=== PATIENT | male | born 1935 | race Caucasian/White ===

== ENCOUNTER 2018-03-11 10:57 | Inpatient (IN) | payer MEDICARE, OTHER ==
[2018-03-11 11:59] LABS: BASO # 0.1 10^3/uL (0.0-0.2); BASO % 0.4 % (0.0-1.0); EOS # 0.7 10^3/uL (0.0-0.50); EOS % 4.8 % (0.0-3.0); HEMATOCRIT 41.2 % (42.0-52.0); HEMOGLOBIN 13.5 g/dl (13.5-17.5); IMMATURE GRANULOCYTE % 1.1 % (0-3.0); LYMPH # 2.4 10^3/uL (1.5-4.5); LYMPH % 17.2 % (24.0-44.0); MEAN CORPUSCULAR HEMOGLOBIN 32.1 pg (27.0-33.0); MEAN CORPUSCULAR HGB CONC 32.8 g/dl (32.0-36.5); MEAN CORPUSCULAR VOLUME 97.9 fl (80.0-96.0); MONO # 0.8 10^3/uL (0.0-0.8); MONO % 5.9 % (0.0-5.0); NEUTROPHILS # 9.9 10^3/uL (1.8-7.7); NEUTROPHILS % 70.6 % (36.0-66.0); PLATELET COUNT, AUTOMATED 335 10^3/uL (150-450); RED BLOOD COUNT 4.21 10^6/uL (4.30-6.10); RED CELL DISTRIBUTION WIDTH 13.9 % (11.5-14.5)
[2018-03-11 12:05] LABS: ABG BASE EXCESS -1.9 (-2.0-2.0); ABG HCO3 21.6 MEQ/L (22.0-26.0); ABG O2 SATURATION 94.7 % (95.0-99.0); ABG PARTIAL PRESSURE CO2 33.5 mmHg (35.0-45.0); ABG STANDARD HCO3 22.8 MEQ/L (22.0-26.0); ABG TOTAL CO2 22.7 MEQ/L (23.0-31.0); ABG pH (ARTERIAL) 7.428 UNITS (7.350-7.450)
[2018-03-11 12:16] LABS: ANION GAP 11 MEQ/L (8-16); BLOOD UREA NITROGEN 13 MG/DL (7-18); CALCIUM LEVEL 9.3 MG/DL (8.8-10.2); CARBON DIOXIDE LEVEL 26 MEQ/L (21-32); CHLORIDE LEVEL 101 MEQ/L (98-107); CREATININE FOR GFR 1.49 MG/DL (0.70-1.30); GLOMERULAR FILTRATION RATE 47.9 (>35); GLUCOSE, FASTING 141 MG/DL (70-100); POTASSIUM SERUM 3.7 MEQ/L (3.5-5.1); SODIUM LEVEL 138 MEQ/L (136-145)
[2018-03-11] MEDS: FUROSEMIDE 40 MG/4 ML VIAL (J1940) IV ×2 (12:40→17:29)
[2018-03-11] MEDS: IPRATROPIUM 0.5MG/ALBUTEROL 2.5MG INH SOL UD 3ML (DUONEB)(J7620) NEB ×4 (12:48→18:26)
[2018-03-11 12:52] LABS: CPK CREATINE PHOSPHOKINASE 45 U/L (39-308); MB/CK RELATIVE INDEX 6.44 (< OR =4); NT-PRO BNP 571 PG/ML (<450); TROPONIN I < 0.02 NG/ML (< 0.10)
[2018-03-11 15:17] LABS: INR 1.25; PROTHROMBIN TIME 15.9 SECONDS (12.1-14.4)
[2018-03-11 16:11] LABS: APPEARANCE, URINE CLEAR (CLEAR); BACTERIA, URINE AUTO NEGATIVE (NEGATIVE); BILIRUBIN, URINE AUTO NEGATIVE (NEGATIVE); BLOOD, URINE BLOOD 2+ (NEGATIVE); COLOR, URINE STRAW (YELLOW); GLUCOSE, URINE (UA) AUTO NEGATIVE (NEGATIVE); KETONE, URINE AUTO TRACE mg/dL (NEGATIVE); LEUKOCYTE ESTERASE, URINE AUTO NEGATIVE (NEGATIVE); MUCUS, URINE SMALL (NEGATIVE); NITRITE, URINE AUTO NEGATIVE (NEGATIVE); PROTEIN, URINE AUTO NEGATIVE (NEGATIVE); RBC, URINE AUTO 2 /HPF (0-3); SPECIFIC GRAVITY URINE AUTO 1.005 (1.002-1.035); SQUAMOUS EPITHELIAL CELL UR AU 0 /HPF (0-6); UROBILINOGEN, URINE AUTO 0.2 mg/dL (0.0-2.0); WBC, URINE AUTO 1 /HPF (0-3)
[2018-03-11 16:21] LABS: OSMOLALITY URINE 278 MOSM/KG (500-800)
[2018-03-11 16:28] LABS: CHLORIDE,RANDOM URINE 106 MEQ/L; POTASSIUM RANDOM URINE 24.8 MEQ/L; SODIUM,RANDOM URINE 77 MEQ/L; TOTAL PROTEIN,RANDOM URINE 13.8 MG/DL (0.0-12.0)
[2018-03-11] MEDS ORDERED: ACETAMINOPHEN TAB 650MG DOSE (2X325MG) PO (16:30)
[2018-03-11] MEDS ORDERED: ONDANSETRON 4MG/2ML VIAL (J2405) IV (16:30)
[2018-03-11] MEDS ORDERED: IPRATROPIUM 0.5MG/ALBUTEROL 2.5MG INH SOL UD 3ML (DUONEB)(J7620) NEB (16:30)
[2018-03-11 16:33] LABS: ALBUMIN 3.1 GM/DL (3.2-5.2); ALBUMIN/GLOBULIN RATIO 0.94 (1.00-1.93); ALKALINE PHOSPHATASE 125 U/L (45-117); ALT/SGPT 19 U/L (12-78); AST/SGOT 11 U/L (7-37); BILIRUBIN,DIRECT 0.3 MG/DL (0.0-0.2); BILIRUBIN,TOTAL 0.7 MG/DL (0.2-1.0); C REACTIVE PROTEIN QUANTITATIV 8.69 MG/DL (0.00-0.30); CPK CREATINE PHOSPHOKINASE 47 U/L (39-308); MB/CK RELATIVE INDEX 7.45 (< OR =4); TOTAL PROTEIN 6.4 GM/DL (6.4-8.2); TROPONIN I < 0.02 NG/ML (< 0.10)
[2018-03-11 16:37] LABS: LACTIC ACID SEPSIS PROTOCOL 2.3 MMOL/L (0.4-2.0)
[2018-03-11 17:29] LABS: FREE THYROXINE INDEX 2.5 % (1.4-3.8); T UPTAKE 36 % (33-40)
[2018-03-11] MEDS: methylPREDNISolone INJ 125 MG/2 ML VIAL (J2930) IV (17:32)
[2018-03-11] MEDS: MOXIFLOXACIN HCL 400 MG in APPROPRIATE DILUENT 1 EA IV (17:39)
[2018-03-11] MEDS ORDERED: SLF 3 ML SYR IV (18:45)
[2018-03-11] MEDS: ADVAIR HFA 115/21MCG INHALER INH (20:17)
[2018-03-11] MEDS: ALLOPURINOL 100 MG TAB PO (20:43)
[2018-03-11] MEDS: SIMVASTATIN 20 MG TAB PO (20:43)
[2018-03-11] MEDS: APIXABAN 2.5 MG TAB (ELIQUIS) PO (20:43)
[2018-03-11] MEDS: SENOKOT S TAB PO (20:43)
[2018-03-11] MEDS: FINASTERIDE 5 MG TAB PO (20:43)
[2018-03-11] MEDS: SLF 3 ML SYR IV (20:44)
[2018-03-11 20:51] LABS: CPK CREATINE PHOSPHOKINASE 62 U/L (39-308); MB/CK RELATIVE INDEX 6.77 (< OR =4); TROPONIN I < 0.02 NG/ML (< 0.10)
[2018-03-11] MEDS ORDERED: NS 1,000 ML IV ×2 (21:00)
[2018-03-12] MEDS: FUROSEMIDE 40 MG/4 ML VIAL (J1940) IV ×4 (00:37→17:38)
[2018-03-12] MEDS: methylPREDNISolone INJ 125 MG/2 ML VIAL (J2930) IV ×3 (00:37→17:37)
[2018-03-12] MEDS: IPRATROPIUM 0.5MG/ALBUTEROL 2.5MG INH SOL UD 3ML (DUONEB)(J7620) NEB ×4 (00:55→20:00)
[2018-03-12 01:28] LABS: KETONE, URINE AUTO RFX NEGATIVE (NEGATIVE); LEUKOCYTE ESTERASE UR AUTO RFX NEGATIVE (NEGATIVE); NITRITE, URINE AUTO RFX NEGATIVE (NEGATIVE); RBC, URINE AUTO RFX 3 /HPF (0-3); SPECIFIC GRAVITY UR AUTO RFX 1.004 (1.002-1.035); SQUAM EPITHELIAL CELL UR AURFX 0 /HPF (0-6); WBC, URINE AUTO RFX 1 /HPF (0-3)
[2018-03-12] MEDS: SLF 3 ML SYR IV ×3 (05:19→20:27)
[2018-03-12 05:54] LABS: HEMATOCRIT 38.3 % (42.0-52.0); HEMOGLOBIN 13.1 g/dl (13.5-17.5); MEAN CORPUSCULAR HGB CONC 34.2 g/dl (32.0-36.5); MEAN CORPUSCULAR VOLUME 93.4 fl (80.0-96.0); PLATELET COUNT, AUTOMATED 329 10^3/uL (150-450); RED CELL DISTRIBUTION WIDTH 13.7 % (11.5-14.5); WHITE BLOOD COUNT 11.9 10^3/uL (4.0-10.0)
[2018-03-12 06:23] LABS: ALBUMIN 3.1 GM/DL (3.2-5.2); ALBUMIN/GLOBULIN RATIO 0.74 (1.00-1.93); ALKALINE PHOSPHATASE 112 U/L (45-117); ALT/SGPT 20 U/L (12-78); ANION GAP 13 MEQ/L (8-16); AST/SGOT 17 U/L (7-37); BILIRUBIN,TOTAL 0.5 MG/DL (0.2-1.0); BLOOD UREA NITROGEN 19 MG/DL (7-18); C REACTIVE PROTEIN QUANTITATIV 7.96 MG/DL (0.00-0.30); CALCIUM LEVEL 9.3 MG/DL (8.8-10.2); CARBON DIOXIDE LEVEL 24 MEQ/L (21-32); CHLORIDE LEVEL 99 MEQ/L (98-107); CREATININE FOR GFR 1.76 MG/DL (0.70-1.30); GLOMERULAR FILTRATION RATE 39.6 (>35); GLUCOSE, FASTING 161 MG/DL (70-100); MAGNESIUM LEVEL 2.1 MG/DL (1.8-2.4); POTASSIUM SERUM 3.6 MEQ/L (3.5-5.1); SODIUM LEVEL 136 MEQ/L (136-145); TOTAL PROTEIN 7.3 GM/DL (6.4-8.2)
[2018-03-12] MEDS: ADVAIR HFA 115/21MCG INHALER INH ×2 (07:55→20:15)
[2018-03-12] MEDS: APIXABAN 2.5 MG TAB (ELIQUIS) PO ×3 (09:00→20:25)
[2018-03-12] MEDS: SENOKOT S TAB PO ×2 (09:00→20:26)
[2018-03-12] MEDS: MOXIFLOXACIN HCL 400 MG in APPROPRIATE DILUENT 1 EA IV (17:37)
[2018-03-12] MEDS: INFLUENZA VIRUS VACCINE HIGH DOSE 0.5 ML SYRINGE (90662) IM (17:39)
[2018-03-12] MEDS: ALLOPURINOL 100 MG TAB PO (20:25)
[2018-03-12] MEDS: SIMVASTATIN 20 MG TAB PO (20:25)
[2018-03-12] MEDS: FINASTERIDE 5 MG TAB PO (20:26)
[2018-03-13] MEDS: FUROSEMIDE 40 MG/4 ML VIAL (J1940) IV ×4 (00:01→18:02)
[2018-03-13] MEDS: methylPREDNISolone INJ 125 MG/2 ML VIAL (J2930) IV ×2 (00:02→08:01)
[2018-03-13] MEDS: IPRATROPIUM 0.5MG/ALBUTEROL 2.5MG INH SOL UD 3ML (DUONEB)(J7620) NEB ×4 (00:57→20:00)
[2018-03-13] MEDS: SLF 3 ML SYR IV ×3 (05:06→21:10)
[2018-03-13 05:47] LABS: HEMATOCRIT 36.7 % (42.0-52.0); HEMOGLOBIN 12.2 g/dl (13.5-17.5); MEAN CORPUSCULAR HEMOGLOBIN 31.4 pg (27.0-33.0); MEAN CORPUSCULAR HGB CONC 33.2 g/dl (32.0-36.5); MEAN CORPUSCULAR VOLUME 94.6 fl (80.0-96.0); PLATELET COUNT, AUTOMATED 274 10^3/uL (150-450); RED BLOOD COUNT 3.88 10^6/uL (4.30-6.10); RED CELL DISTRIBUTION WIDTH 13.9 % (11.5-14.5); WHITE BLOOD COUNT 19.1 10^3/uL (4.0-10.0)
[2018-03-13 06:38] LABS: ALBUMIN 2.5 GM/DL (3.2-5.2); ALBUMIN/GLOBULIN RATIO 0.64 (1.00-1.93); ALKALINE PHOSPHATASE 88 U/L (45-117); ALT/SGPT 21 U/L (12-78); ANION GAP 11 MEQ/L (8-16); AST/SGOT 35 U/L (7-37); BILIRUBIN,TOTAL 0.3 MG/DL (0.2-1.0); BLOOD UREA NITROGEN 27 MG/DL (7-18); CALCIUM LEVEL 8.4 MG/DL (8.8-10.2); CARBON DIOXIDE LEVEL 21 MEQ/L (21-32); CHLORIDE LEVEL 103 MEQ/L (98-107); CREATININE FOR GFR 1.93 MG/DL (0.70-1.30); GLOMERULAR FILTRATION RATE 35.6 (>35); GLUCOSE, FASTING 163 MG/DL (70-100); MAGNESIUM LEVEL 2.1 MG/DL (1.8-2.4); POTASSIUM SERUM 3.6 MEQ/L (3.5-5.1); SODIUM LEVEL 135 MEQ/L (136-145); TOTAL PROTEIN 6.4 GM/DL (6.4-8.2)
[2018-03-13] MEDS: ADVAIR HFA 115/21MCG INHALER INH ×2 (07:10→22:07)
[2018-03-13] MEDS: SENOKOT S TAB PO ×2 (08:01→21:09)
[2018-03-13] MEDS: APIXABAN 2.5 MG TAB (ELIQUIS) PO ×2 (08:01→21:09)
[2018-03-13] MEDS ORDERED: dexameTHASONE 4 MG/ML 1ML VIAL (J1100) As Ordered (14:21)
[2018-03-13] MEDS ORDERED: ONDANSETRON 4MG/2ML VIAL (J2405) As Ordered (14:21)
[2018-03-13] MEDS ORDERED: PROPOFOL 200 MG/20 ML VIAL As Ordered ×2 (14:21→15:28)
[2018-03-13] MEDS ORDERED: LIDOCAINE 2% INJ 100 MG/5 ML SDV (FOR ANES.) As Ordered (14:21)
[2018-03-13] MEDS ORDERED: fentaNYL 100 MCG/2 ML INJECTION (J3010) As Ordered (14:22)
[2018-03-13] MEDS ORDERED: MIDAZOLAM INJ 2 MG/2 ML VIAL (J2250) As Ordered (14:22)
[2018-03-13] MEDS: LIDOCAINE 2% 5ML JELLY UROJET As Ordered (15:30)
[2018-03-13] MEDS: CONRAY-60 60% 50ML VIAL (Q9961) As Ordered (15:30)
[2018-03-13] MEDS: LR 1,000 ML IV (15:59)
[2018-03-13] MEDS: MOXIFLOXACIN HCL 400 MG in APPROPRIATE DILUENT 1 EA IV (16:25)
[2018-03-13] MEDS: FINASTERIDE 5 MG TAB PO (21:08)
[2018-03-13] MEDS: SIMVASTATIN 20 MG TAB PO (21:08)
[2018-03-13] MEDS: ALLOPURINOL 100 MG TAB PO (21:09)
[2018-03-13] MEDS: predniSONE 20 MG TAB PO (21:09)
[2018-03-14] MEDS: FUROSEMIDE 40 MG/4 ML VIAL (J1940) IV ×3 (00:03→11:50)
[2018-03-14] MEDS: IPRATROPIUM 0.5MG/ALBUTEROL 2.5MG INH SOL UD 3ML (DUONEB)(J7620) NEB ×4 (01:29→20:00)
[2018-03-14 05:09] LABS: HEMATOCRIT 37.8 % (42.0-52.0); HEMOGLOBIN 12.5 g/dl (13.5-17.5); MEAN CORPUSCULAR HEMOGLOBIN 31.6 pg (27.0-33.0); MEAN CORPUSCULAR HGB CONC 33.1 g/dl (32.0-36.5); MEAN CORPUSCULAR VOLUME 95.5 fl (80.0-96.0); PLATELET COUNT, AUTOMATED 304 10^3/uL (150-450); RED BLOOD COUNT 3.96 10^6/uL (4.30-6.10); RED CELL DISTRIBUTION WIDTH 13.7 % (11.5-14.5); WHITE BLOOD COUNT 18.2 10^3/uL (4.0-10.0)
[2018-03-14] MEDS: SLF 3 ML SYR IV ×3 (05:28→21:26)
[2018-03-14 05:37] LABS: ALBUMIN/GLOBULIN RATIO 0.91 (1.00-1.93); ALKALINE PHOSPHATASE 82 U/L (45-117); ALT/SGPT 30 U/L (12-78); ANION GAP 12 MEQ/L (8-16); AST/SGOT 41 U/L (7-37); BILIRUBIN,TOTAL 0.3 MG/DL (0.2-1.0); BLOOD UREA NITROGEN 34 MG/DL (7-18); C REACTIVE PROTEIN QUANTITATIV 1.43 MG/DL (0.00-0.30); CALCIUM LEVEL 9.1 MG/DL (8.8-10.2); CARBON DIOXIDE LEVEL 26 MEQ/L (21-32); CHLORIDE LEVEL 101 MEQ/L (98-107); GLOMERULAR FILTRATION RATE 36.2 (>35); GLUCOSE, FASTING 175 MG/DL (70-100); MAGNESIUM LEVEL 2.5 MG/DL (1.8-2.4); POTASSIUM SERUM 3.5 MEQ/L (3.5-5.1); SODIUM LEVEL 139 MEQ/L (136-145); TOTAL PROTEIN 6.3 GM/DL (6.4-8.2)
[2018-03-14] MEDS: ADVAIR HFA 115/21MCG INHALER INH ×2 (07:25→21:00)
[2018-03-14] MEDS: SENOKOT S TAB PO ×2 (08:21→21:26)
[2018-03-14] MEDS: predniSONE 20 MG TAB PO (08:21)
[2018-03-14] MEDS: APIXABAN 2.5 MG TAB (ELIQUIS) PO ×2 (08:21→21:26)
[2018-03-14] MEDS: amLODIPine 10 MG TAB PO (14:08)
[2018-03-14] MEDS: TORSEMIDE 20 MG TAB PO (16:32)
[2018-03-14] MEDS: MOXIFLOXACIN HCL 400 MG in APPROPRIATE DILUENT 1 EA IV (16:33)
[2018-03-14] MEDS: ALLOPURINOL 100 MG TAB PO (21:26)
[2018-03-14] MEDS: FINASTERIDE 5 MG TAB PO (21:26)
[2018-03-14] MEDS: SIMVASTATIN 20 MG TAB PO (21:26)
[2018-03-15] MEDS: IPRATROPIUM 0.5MG/ALBUTEROL 2.5MG INH SOL UD 3ML (DUONEB)(J7620) NEB ×4 (00:51→20:00)
[2018-03-15] MEDS: SLF 3 ML SYR IV ×3 (05:22→22:33)
[2018-03-15 05:51] LABS: HEMATOCRIT 36.5 % (42.0-52.0); HEMOGLOBIN 12.1 g/dl (13.5-17.5); MEAN CORPUSCULAR HEMOGLOBIN 31.4 pg (27.0-33.0); MEAN CORPUSCULAR HGB CONC 33.2 g/dl (32.0-36.5); MEAN CORPUSCULAR VOLUME 94.8 fl (80.0-96.0); PLATELET COUNT, AUTOMATED 261 10^3/uL (150-450); RED BLOOD COUNT 3.85 10^6/uL (4.30-6.10); RED CELL DISTRIBUTION WIDTH 13.5 % (11.5-14.5); WHITE BLOOD COUNT 13.7 10^3/uL (4.0-10.0)
[2018-03-15 06:02] LABS: ANION GAP 10 MEQ/L (8-16); AST/SGOT 30 U/L (7-37); BLOOD UREA NITROGEN 38 MG/DL (7-18); CALCIUM LEVEL 8.9 MG/DL (8.8-10.2); CARBON DIOXIDE LEVEL 30 MEQ/L (21-32); CHLORIDE LEVEL 103 MEQ/L (98-107); CREATININE FOR GFR 1.77 MG/DL (0.70-1.30); GLOMERULAR FILTRATION RATE 39.3 (>35); GLUCOSE, FASTING 133 MG/DL (70-100); POTASSIUM SERUM 3.4 MEQ/L (3.5-5.1); SODIUM LEVEL 143 MEQ/L (136-145)
[2018-03-15 06:03] LABS: ALBUMIN 2.8 GM/DL (3.2-5.2); ALKALINE PHOSPHATASE 72 U/L (45-117); ALT/SGPT 33 U/L (12-78); BILIRUBIN,TOTAL 0.3 MG/DL (0.2-1.0); C REACTIVE PROTEIN QUANTITATIV 0.67 MG/DL (0.00-0.30); MAGNESIUM LEVEL 2.5 MG/DL (1.8-2.4); TOTAL PROTEIN 5.9 GM/DL (6.4-8.2)
[2018-03-15] MEDS: ADVAIR HFA 115/21MCG INHALER INH ×2 (08:00→20:23)
[2018-03-15] MEDS: SENOKOT S TAB PO ×2 (08:15→22:32)
[2018-03-15] MEDS: predniSONE 20 MG TAB PO (08:15)
[2018-03-15] MEDS: amLODIPine 10 MG TAB PO (08:16)
[2018-03-15] MEDS: APIXABAN 2.5 MG TAB (ELIQUIS) PO ×2 (08:16→22:32)
[2018-03-15] MEDS: TORSEMIDE 20 MG TAB PO (08:16)
[2018-03-15] MEDS: POTASSIUM CHLORIDE 10 MEQ SR TABLET PO (08:17)
[2018-03-15] MEDS: MOXIFLOXACIN HCL 400 MG in APPROPRIATE DILUENT 1 EA IV (16:35)
[2018-03-15] MEDS: SIMVASTATIN 20 MG TAB PO (22:32)
[2018-03-15] MEDS: FINASTERIDE 5 MG TAB PO (22:32)
[2018-03-15] MEDS: ALLOPURINOL 100 MG TAB PO (22:33)
[2018-03-15] MEDS: guaiFENesin SYRUP 200 MG/10 ML UDC PO (22:45)
[2018-03-16] MEDS: IPRATROPIUM 0.5MG/ALBUTEROL 2.5MG INH SOL UD 3ML (DUONEB)(J7620) NEB ×2 (01:21→07:26)
[2018-03-16] MEDS: METOPROLOL TART 12.5 MG PER 1/2 TAB PO (05:15)
[2018-03-16] MEDS: SLF 3 ML SYR IV (05:21)
[2018-03-16 05:26] LABS: HEMATOCRIT 40.3 % (42.0-52.0); HEMOGLOBIN 13.1 g/dl (13.5-17.5); MEAN CORPUSCULAR HGB CONC 32.5 g/dl (32.0-36.5); MEAN CORPUSCULAR VOLUME 95.5 fl (80.0-96.0); PLATELET COUNT, AUTOMATED 299 10^3/uL (150-450); RED BLOOD COUNT 4.22 10^6/uL (4.30-6.10); RED CELL DISTRIBUTION WIDTH 13.4 % (11.5-14.5); WHITE BLOOD COUNT 15.6 10^3/uL (4.0-10.0)
[2018-03-16 05:47] LABS: ALBUMIN 3.1 GM/DL (3.2-5.2); ALBUMIN/GLOBULIN RATIO 0.97 (1.00-1.93); ALKALINE PHOSPHATASE 73 U/L (45-117); ALT/SGPT 40 U/L (12-78); ANION GAP 9 MEQ/L (8-16); AST/SGOT 26 U/L (7-37); BILIRUBIN,TOTAL 0.4 MG/DL (0.2-1.0); BLOOD UREA NITROGEN 33 MG/DL (7-18); C REACTIVE PROTEIN QUANTITATIV 0.43 MG/DL (0.00-0.30); CALCIUM LEVEL 9.2 MG/DL (8.8-10.2); CARBON DIOXIDE LEVEL 32 MEQ/L (21-32); CHLORIDE LEVEL 104 MEQ/L (98-107); CREATININE FOR GFR 1.75 MG/DL (0.70-1.30); GLOMERULAR FILTRATION RATE 39.8 (>35); GLUCOSE, FASTING 111 MG/DL (70-100); MAGNESIUM LEVEL 2.3 MG/DL (1.8-2.4); POTASSIUM SERUM 3.5 MEQ/L (3.5-5.1); SODIUM LEVEL 145 MEQ/L (136-145); TOTAL PROTEIN 6.3 GM/DL (6.4-8.2)
[2018-03-16] MEDS: ADVAIR HFA 115/21MCG INHALER INH (07:26)
[2018-03-16] MEDS: APIXABAN 2.5 MG TAB (ELIQUIS) PO (09:04)
[2018-03-16] MEDS: TORSEMIDE 20 MG TAB PO (09:05)
[2018-03-16] MEDS: amLODIPine 10 MG TAB PO (09:05)
[2018-03-16] MEDS: SENOKOT S TAB PO (09:05)
[2018-03-16] MEDS: predniSONE 10 MG TAB PO (09:06)
== END 2018-03-16 10:44 | disposition home or self-care (01) | DRG 987 ==
LOC: M ED 10:57 → M ED INP 16:27 → M PCU 18:05
PROC: 0T768DZ Dilation of Right Ureter with Intraluminal Device, Via Natural or Artificial Opening Endoscopic (ICD-10-PCS; principal; 2018-03-13 14:30)
DX: J44.1 Chronic obstructive pulmonary disease with (acute) exacerbation (principal); I50.31 Acute diastolic (congestive) heart failure; N17.9 Acute kidney failure, unspecified; N13.30 Unspecified hydronephrosis; E78.5 Hyperlipidemia, unspecified; I48.91 Unspecified atrial fibrillation; I27.20 Pulmonary hypertension, unspecified; F43.10 Post-traumatic stress disorder, unspecified; Z79.899 Other long term (current) drug therapy; I11.0 Hypertensive heart disease with heart failure; Z88.0 Allergy status to penicillin; Z79.01 Long term (current) use of anticoagulants; N40.0 Benign prostatic hyperplasia without lower urinary tract symptoms; F10.10 Alcohol abuse, uncomplicated

== ENCOUNTER 2019-05-21 00:10 | Emergency (ER) | payer MEDICARE, OTHER ==
[~2019-05-21 00:10] MED LIST: ADV250INH INH; ADV500INH; ALLO100T PO; AMLO10TA5 PO; AMLO2.5T3 PO; AMLO5TAB6 PO; BENA40TA7 PO; DEMA20TA6 PO; ELIQ2.5T PO; FINA5TAB2 PO; METO1TAB87 PO; MOXI1TAB PO; PRED10TA2 PO; PROAAER10 INH; SIMV20TA22 PO; TORS20TA2
[2019-05-21 01:59] LABS: BASO % 0.3 % (0.0-1.0); EOS # 0.2 10^3/uL (0.0-0.5); EOS % 1.5 % (0.0-3.0); HEMATOCRIT 39.5 % (42.0-52.0); HEMOGLOBIN 13.1 g/dl (13.5-17.5); LYMPH # 1.7 10^3/uL (1.5-5.0); MEAN CORPUSCULAR HGB CONC 33.2 g/dl (32.0-36.5); MEAN CORPUSCULAR VOLUME 105.6 fl (80.0-96.0); MONO # 1.1 10^3/uL (0.0-0.8); MONO % 11.3 % (0.0-5.0); NEUTROPHILS # 6.8 10^3/uL (1.5-8.5); NEUTROPHILS % 68.2 % (36.0-66.0); PLATELET COUNT, AUTOMATED 221 10^3/uL (150-450); RED BLOOD COUNT 3.74 10^6/uL (4.30-6.10); WHITE BLOOD COUNT 9.9 10^3/uL (4.0-10.0)
[2019-05-21 02:25] LABS: CALCIUM LEVEL 9.3 MG/DL (8.8-10.2); CREATININE FOR GFR 1.56 MG/DL (0.70-1.30); GLOMERULAR FILTRATION RATE 45.3 (>35); POTASSIUM SERUM 3.3 MEQ/L (3.5-5.1)
[2019-05-21] MEDS ORDERED: POTASSIUM CHLORIDE 10 MEQ SR TABLET PO ONE (03:00)
[2019-05-21] MEDS ORDERED: CLOB0.0526 TOP (03:19)
[2019-05-21 08:00] VITALS: BP 168/82
== END 2019-05-21 08:41 | disposition home or self-care (01) ==
LOC: M ED 00:10
DX: R21 Rash and other nonspecific skin eruption (principal); J44.9 Chronic obstructive pulmonary disease, unspecified; I11.0 Hypertensive heart disease with heart failure; I50.9 Heart failure, unspecified; I48.91 Unspecified atrial fibrillation; E78.5 Hyperlipidemia, unspecified; Z79.899 Other long term (current) drug therapy; Z79.01 Long term (current) use of anticoagulants; Z88.0 Allergy status to penicillin; Z87.891 Personal history of nicotine dependence